=== PATIENT | female | born 1955 | race Caucasian/White ===

== ENCOUNTER → 2016-12-23 | Outpatient (CLI) | payer BC ==
[~2016-12-23] MED LIST: ASPIRIN81 M1 PO; FEMHRT 1-5 TAB1 EACH PO; FERREX 150 PLU1 EACH PO; HYDROCHLOROTHIA25 MG PO; LIPITOR40 MG PO; LOSARTAN POTASS50 MG PO; MIRALAX17 GM PO; MOTION SICKNESS PO; NEXIUM PO; RAPIFLUX20 M1 PO; VITAMIN D31000 UNIT PO; WAL ZYR D PO
--- NOTE | ~2016-12-23 | CT71 ---
[facility] A Service of [facility] RADIOLOGY TEXT RESULTS PATIENT: KATERYNA COE LOCATION: SNIV : 59 UNIT #: [id number] AGE: [address]: Camilla Funk APRN SEX: F ORDER DR: [id number] [address] [address] [id number] O MR#: [id number] Acc #: [id number] NAME: KATERYNA COE : 1955 SEX: F STUDY DATE/TIME: 12/23/2016 14:31 UNIT: SNIV ROOM: STUDY DESCRIPTION: CT Head Wo Contrast Attending Physician: Camilla Funk A.P.R.N. Referring Physician: Camilla Funk A.P.R.N. Ordering Physician: Camilla Funk A.P.R.N. Primary Care Physician: Camilla Funk A.P.R.N. MEDICAL IMAGING REPORT This report is preliminary unless electronic signature is present. EXAM Head CT no contrast, 12/23/2016 PROCEDURE Axial unenhanced head CT. This CT exam was performed with one or more of the following radiation dose reduction techniques: automatic exposure control, adjustment of mA and/or kV according to patient size, and iterative reconstruction. HISTORY Right side mid to posterior headache for 2 weeks with left arm numbness. FINDINGS Brain parenchymal density is normal. There is no intracranial hemorrhage or mass. There is no hydrocephalus or extraaxial fluid collection. The extracranial soft tissues are remarkable only for a left parietal scalp epidermal inclusion cyst. The skull base and calvaria are normal. IMPRESSION Normal negative unenhanced head CT. Incidentally noted left parietal scalp epidermal inclusion cyst. Dictated by... Bobby Castillo M.D. THIS IS AN ELECTRONICALLY VERIFIED REPORT Bobby Castillo M.D. at 12/24/2016 1:19 PM CUATE/tio TD: 12/23/2016 16:10 [facility] A Service of [facility] RADIOLOGY TEXT RESULTS PATIENT: KATERYNA COE LOCATION: [facility] : 59 UNIT #: [id number] AGE: [address]: Camilla Funk APRN SEX: F ORDER DR: DERICK #: [id number] MEDICAL IMAGING REPORT Page 1 of 1
--- NOTE | ~2016-12-23 | US37 ---
[facility] A Service of [facility] RADIOLOGY TEXT RESULTS PATIENT: KATERYNA COE LOCATION: SNIV : 59 UNIT #: [id number] AGE: [address]: Camilla Funk APRN SEX: F ORDER DR: [id number] [address] [address] [id number] O MR#: [id number] Acc #: [id number] NAME: KATERYNA COE : 1955 SEX: F STUDY DATE/TIME: 12/23/2016 14:22 UNIT: SNIV ROOM: STUDY DESCRIPTION: US Carotid W/Doppler Bilateral Attending Physician: Camilla Funk A.P.R.N. Referring Physician: Camilla Funk A.P.R.N. Ordering Physician: Camilla Funk A.P.R.N. Primary Care Physician: Camilla Funk A.P.R.N. MEDICAL IMAGING REPORT This report is preliminary unless electronic signature is present. EXAM Bilateral carotid Doppler, 12/23/2016. HISTORY Headache. FINDINGS The right common carotid, internal carotid, and external carotid arteries are patent with mild plaque noted at the carotid bulb and proximal internal carotid artery. Velocity of the common carotid artery is 76 cm/sec. Peak systolic velocity of the right proximal internal carotid artery is 50 cm/sec, with an end diastolic velocity of 24 cm/sec, for an ICA:CCA ratio of 0.67. External carotid artery had a velocity of 78 cm/sec. The vertebral artery is visualized with antegrade flow. The left common carotid, internal carotid, and external carotid arteries are patent with minimal plaque at the carotid bulb and internal carotid artery. Velocity of the common carotid artery is 77 cm/sec. Peak systolic velocity of the left proximal internal carotid artery is 75 cm/sec with an end diastolic velocity of 34 cm/sec, for an ICA:CCA ratio of 1.0. External carotid artery had a velocity of 75 cm/sec. The vertebral artery is visualized with antegrade flow. IMPRESSION 1. Less than 50% stenosis of the right and left internal carotid arteries. 2. No stenosis of the external carotid arteries. 3. Antegrade flow of the vertebral arteries. [facility]. [facility] A Service of [facility] RADIOLOGY TEXT RESULTS PATIENT: KATERYNA COE LOCATION: [facility] : 59 UNIT #: [id number] AGE: [address]: Camilla Funk APRN SEX: F ORDER DR: Dictated by... Tasneem Mckeon M.D. THIS IS AN ELECTRONICALLY VERIFIED REPORT Tasneem Mckeon M.D. at 12/24/2016 7:10 AM [place] TD: 12/23/2016 18:31 JOB #: [id number] MEDICAL IMAGING REPORT Page 1 of 1
== END | disposition home or self-care (01) ==
LOC: SNIV 14:17
DX: R51 Headache (principal); R26.89 Other abnormalities of gait and mobility; I65.23 Occlusion and stenosis of bilateral carotid arteries
CPT/HCPCS: 70450; 93880